=== PATIENT | male | born 1985 | race Caucasian/White ===

== ENCOUNTER 2017-04-30 19:33 | Emergency (ER) | payer OTHER ==
[~2017-04-30] VITALS: Ht 172.7 cm; Wt 90.6 kg
[2017-04-30 21:40] VITALS: BP 120/76
== END 2017-04-30 21:42 | disposition home or self-care (01) ==
LOC: ED 21:36
DX: T78.40XA Allergy, unspecified, initial encounter (principal); R21 Rash and other nonspecific skin eruption
CPT/HCPCS: 99282; J7512